=== PATIENT | female | born 1960 | race Caucasian/White ===

== ENCOUNTER 2017-06-12 13:20 | Day surgery (SDC) | payer OTHER ==
[2017-06-12] MEDS ORDERED: PROPOFOL 60 ML (17:00)
[2017-06-12] MEDS ORDERED: LIDOCAINE 2% (SDV) 5 ML INJ (17:00)
== END 2017-06-12 18:31 | disposition home or self-care (01) ==
LOC: GIL 13:20
DX: Z12.11 Encounter for screening for malignant neoplasm of colon (principal); D12.2 Benign neoplasm of ascending colon; E66.9 Obesity, unspecified; Z68.30 Body mass index [BMI] 30.0-30.9, adult
CPT/HCPCS: 45380; 88305